=== PATIENT | male | born 1965 | race Asian ===

== ENCOUNTER 2019-09-16 06:55 | Day surgery (SDC) | payer BC ==
[2019-09-16] MEDS ORDERED: BUPIVACAINE 0.25% MPF 30ML VIAL IVP ONE (06:56)
[2019-09-16] MEDS ORDERED: DEXAMETHASONE 4 MG/ML 1ML VIAL IVP ONE (06:56)
[2019-09-16] MEDS ORDERED: *PACU ONLY* KETAMINE HCL 10 MG/ML (20ML) VIAL IV ONE (06:56)
[2019-09-16] MEDS ORDERED: BUPIVACAINE LIPOSOME/PF 133MG/10ML VIAL IV ONE (06:56)
[2019-09-16] MEDS ORDERED: GLYCOPYRROLATE 0.2 MG/ML ML IV ONE (06:56)
[2019-09-16] MEDS ORDERED: LIDOCAINE 2% MDV (20MG/ML) 20ML VIAL IV ONE (06:56)
[2019-09-16] MEDS ORDERED: PROPOFOL 10 MG/ML VIAL IV ONE (06:56)
[2019-09-16] MEDS ORDERED: MIDAZOLAM HCL 2MG/2ML VIAL IV ONE (06:56)
[2019-09-16] MEDS ORDERED: ACETAMINOPHEN 1,000 MG/100 ML BTL IVPB ONE (07:00)
[2019-09-16] MEDS ORDERED: CEFAZOLIN 2 Gram 2 GM/50 ML BAG IVPB ONE (07:00)
[2019-09-16] MEDS ORDERED: RINGERS SOLUTION,LACTATED 1,000 ML IV ONE ×2 (07:16→10:12)
[2019-09-16] MEDS ORDERED: BUPIVACAINE 0.5% W/EPI MPF 30 ML VIAL SQ ONE (09:44)
[2019-09-16] MEDS ORDERED: METHYLPREDNISOLONE 40MG/VIAL IU ONE (09:44)
[2019-09-16] MEDS ORDERED: MORPHINE SULFATE 10MG/1ML **1ML VIAL IU ONE (09:44)
--- NOTE | 2019-09-17 08:50 | Operative Note ---
DATE OF SURGERY: 09/16/2019 PREOPERATIVE DIAGNOSIS: Left shoulder impingement. POSTOPERATIVE DIAGNOSES: 1. A complex glenohumeral labral tear anterosuperiorly. 2. Left shoulder external impingement. 3. Arthrosis left distal clavicle. OPERATION: 1. Left shoulder arthroscopy with interarticular debridement. 2. Left shoulder open acromioplasty, CA ligament resection, subacromial bursectomy. 3. Left shoulder distal clavicle resection. STAFF SURGEON: Juan Alberto Alcazar MD ANESTHESIA: Block with monitored anesthesia care. PREPARATION: Chloraprep. INDIVIDUAL CONSIDERATIONS: None. PROCEDURE: The patient was taken to the operating room, placed supine on the operating room table. He had a successful induction of an interscalene block and was placed in a semi-seated beach chair position and had IV sedation monitored anesthesia care. His left arm was then prepped and draped in the usual fashion. The patient had posterior portal identified for arthroscopy. Skin was infiltrated with 0.5% Marcaine with epinephrine prior. An 18-gauge spinal needle was placed in the joint, and the joint was inflated with normal saline with a 60-mL syringe. A stab wound was made, and a blunt-tipped trocar for the scope was placed in the joint. The joint was inflated with normal saline. An anterior accessory portal was then made just inferior to the intact long head of the biceps tendon in a retrograde fashion with a Wissinger martha, and the joint was irrigated out. The patient's long head of the biceps tendon was intact. Glenohumeral joint was normal. Fraying of the labrum just underneath the long head extending just underneath it which was a complex tear which was debrided with a shaver. Rotator cuff underneath was contused but intact. Glenohumeral joint was normal. No instability. Remainder of the labrum was normal and there were no loose bodies or synovitis in the inferior pouch. Subscap tendon was normal. After irrigation, portals were closed with lu. The patient had an anterior approach to the subacromial space and distal clavicle. Skin was again infiltrated with 0.5% Marcaine with epinephrine prior. Sharp dissection carried down through skin and subcutaneous tissues. Small veins were coagulated with a Bovie. An anterior deltoid interval was developed. Care was taken not to split the deltoid more than about 4 cm distal to the anterior tip of the acromion to prevent injury to the axillary nerve. Once in the subacromial space, there was a very thick bursa, anterior spurs at the acromion, spurs at the AC joint. CA ligament was resected with a Bovie. Distal clavicle was resected with an oscillating saw taking about 1 cm. The patient had a slight downsloping acromion with spurs, and an anterior acromioplasty was performed taking about 4-6 mm tapering towards posteromedially to include the spurs at the AC joint. A complete thickened bursa was then removed and I now had a good look at the rotator cuff, which was intact but contused. After irrigation, the deltoid was reattached to the remaining acromion with multiple interrupted #2 Vicryl going directly through the bony acromion. The periosteal cuff of the distal clavicle was closed with running #2 Vicryl. Anterior deltoid interval was closed with running #1 Vicryl. Subcu was closed with 2-0 plus Vicryl and skin was closed with lu. An 18-gauge spinal needle was placed into the subacromial space. It was injected with 10 mL of 0.5% Marcaine with epinephrine, 10 mg of morphine, and 40 mg of Depo-Medrol. A sterile bulky compressive dressing and sling were applied. He was taken back to recovery in good condition. There were no complications. ROLANDO
== END 2019-09-16 11:00 | disposition home or self-care (01) ==
LOC: SUR 06:55
PROVIDERS: ATTEND Orthopaedic Surgery
DX: S43.432A Superior glenoid labrum lesion of left shoulder, initial encounter (principal); M19.012 Primary osteoarthritis, left shoulder; F17.210 Nicotine dependence, cigarettes, uncomplicated
CPT/HCPCS: 29822; 23120; 23130; 01630; 64415; J0690; C9290; J2270; 76942; J1030; J7120